=== PATIENT | female | born 1960 | race Caucasian/White ===

== ENCOUNTER 2020-09-22 05:30 | Day surgery (SDC) | payer OTHER ==
[~2020-09-22 05:30] MED LIST: Dextrose 5%-0.45% NaCl 1,000 ML IV SCH; Midazolam 1 MG/ML 2 ML SDV ONE; Sodium Chloride 0.9% 10 ML Syringe FLUSH PRN; fentaNYL 100 MCG/2 ML SDV ONE
[2020-09-22] MEDS ORDERED: Midazolam 1 MG/ML 2 ML SDV IV ONE ×7 (05:31→07:25)
[2020-09-22] MEDS ORDERED: fentaNYL 100 MCG/2 ML SDV IV ONE ×5 (05:31→07:28)
--- NOTE | 2020-09-22 08:45 | OR ---
DATE: 09/22/2020 PROCEDURE: Total colonoscopy. INSTRUMENT USED: PCF-H190DL Olympus video colonoscope. PREMEDICATIONS: Fentanyl 175 mcg intravenous, Versed 4 mg intravenous, nasal O2 cannula. The procedure was done under pulse oximetry, BP recording, and satellite project site monitor. INDICATION: Screening colonoscopic examination is done for detection of any polypoid lesions and removal, endoscopic hemostasis therapy if needed. DESCRIPTION OF PROCEDURE: Initial rectal exam was unremarkable. Rigid anoscopy was normal. The colonoscope was passed with ease. Numerous wide-mouthed diverticula were noted in the distal left colon along with deformity. The scope was passed with ease up to the ileocecal area. Photographs were taken of the normal-appearing cecum identified by landmarks of appendiceal orifice and double- bulged ileocecal folds. No bleeding was noted from any of the visualized areas at the commencement of the examination. The bowel preparation was one of [place] scale 2 in right and left colon, 3 in transverse colon, total number 7. No stricture. No vascular ectasia. No large isolated ulcerations seen. No evidence of diffuse inflammatory bowel disease in the form of friability, contact bleeding, or ulcerations. No polyp or tumor mass identified. Probing the proximal sides of folds and flexures using adequate distention and clearing up the stool material, withdrawal of the scope was made, cecum to rectum time over 6 minutes. No bleeding was noted from any of the visualized areas at the completion of examination. IMPRESSION: Diverticulosis. The patient tolerated the procedure well. [facility] [place][id number]
== END 2020-09-22 09:38 | disposition home or self-care (01) ==
LOC: DL.ENDO 05:30
PROVIDERS: ATTEND Internal Medicine Gastroenterology
DX: Z12.11 Encounter for screening for malignant neoplasm of colon (principal); K57.30 Diverticulosis of large intestine without perforation or abscess without bleeding; I25.10 Atherosclerotic heart disease of native coronary artery without angina pectoris; E66.09 Other obesity due to excess calories; E03.9 Hypothyroidism, unspecified; E78.5 Hyperlipidemia, unspecified; G47.30 Sleep apnea, unspecified; Z91.040 Latex allergy status; Z91.011 Allergy to milk products; Z95.828 Presence of other vascular implants and grafts; Z68.41 Body mass index [BMI] 40.0-44.9, adult
CPT/HCPCS: J2250; J3010; J7042

== ENCOUNTER 2024-06-22 01:34 | Emergency (ER) | payer BC ==
[2024-06-22] MEDS: diphenhydrAMINE 25 MG Tab PO ONE (03:07)
[2024-06-22] MEDS: Take Home: Ciprofloxacin HCl 500 MG, 6 Tab Pack PO ONE (03:07)
== END 2024-06-22 03:20 | disposition home or self-care (01) ==
LOC: DL.ED 01:34
DX: L50.9 Urticaria, unspecified (principal); N39.0 Urinary tract infection, site not specified; N95.2 Postmenopausal atrophic vaginitis; I25.10 Atherosclerotic heart disease of native coronary artery without angina pectoris; I25.2 Old myocardial infarction; E78.00 Pure hypercholesterolemia, unspecified; E03.9 Hypothyroidism, unspecified; E66.9 Obesity, unspecified; Z95.5 Presence of coronary angioplasty implant and graft; Z79.82 Long term (current) use of aspirin; Z88.2 Allergy status to sulfonamides; Z79.899 Other long term (current) drug therapy; Z79.890 Hormone replacement therapy; Z91.040 Latex allergy status; Z88.8 Allergy status to other drugs, medicaments and biological substances; Z68.42 Body mass index [BMI] 45.0-49.9, adult
CPT/HCPCS: 99283; 99284; A9270